=== PATIENT | male | born 1965 | race Caucasian/White ===

== ENCOUNTER → 2021-05-25 08:39 | Outpatient (CLI) | payer OTHER ==
[~2021-05-25 08:39] MED LIST: ADULT LOW DOSE81 M1 PO; AMLODIPINE-BEN1 EAC3; ATORVASTATIN CA10 MG; ATORVASTATIN CA10 MG PO; LOTREL 5-10 MG1 CAP PO; MAXIMUM D3325 MCG; SILDENAFIL CIT100 MG; TAMSULOSIN HCL0.4 MG
== END | disposition home or self-care (01) ==
LOC: RAD 08:39
PROVIDERS: ATTEND Urology
DX: N20.0 Calculus of kidney (principal)

== ENCOUNTER → 2021-06-30 | Day surgery (SDC) | payer OTHER | END | disposition home or self-care (01) | LOC: ADM 06-24 08:00 → CIR.AMB 08:00 | PROVIDERS: ATTEND Urology | DX: N20.1 Calculus of ureter (principal); Z20.822 Contact with and (suspected) exposure to COVID-19 ==

== ENCOUNTER 2021-07-19 10:00 | Inpatient (IN) | payer OTHER ==
[~2021-07-19] VITALS: Ht 165.1 cm; Wt 86.6 kg
[~2021-07-19 10:00] MED LIST changes: -AMLODIPINE-BEN1 EAC3; -ATORVASTATIN CA10 MG; -MAXIMUM D3325 MCG; -SILDENAFIL CIT100 MG; -TAMSULOSIN HCL0.4 MG
[2021-07-22] MEDS ORDERED: TAMSULOSIN HCL0.4 MG (08:09)
[2021-07-22] MEDS ORDERED: SILDENAFIL CIT100 MG (08:09)
[2021-07-22] MEDS ORDERED: MAXIMUM D3325 MCG (08:09)
[2021-07-22] MEDS ORDERED: AMLODIPINE-BEN1 EAC3 (08:10)
[2021-07-22] MEDS ORDERED: ATORVASTATIN CA10 MG (08:10)
== END 2021-07-23 11:34 | disposition home or self-care (01) | DRG 661 ==
LOC: SURH 07-21 09:00 → O/R 07-21 10:25 → SURG 07-21 17:26
PROVIDERS: ADMIT Urology; ATTEND Urology
PROC: 0TC43ZZ Extirpation of Matter from Left Kidney Pelvis, Percutaneous Approach (ICD-10-PCS; 2021-07-21)
PROC: BT1FZZZ Fluoroscopy of Left Kidney, Ureter and Bladder (ICD-10-PCS; 2021-07-21)
PROC: 0TP98DZ Removal of Intraluminal Device from Ureter, Via Natural or Artificial Opening Endoscopic (ICD-10-PCS; principal; 2021-07-21 09:00)
DX: N20.0 Calculus of kidney (principal); I10 Essential (primary) hypertension